=== PATIENT | female | born 1980 | race Caucasian/White ===

== ENCOUNTER 2020-11-14 23:43 | Emergency (ER) | payer OTHER | END 2020-11-15 03:05 | disposition home or self-care (01) | LOC: ER1 23:43 | DX: S30.0XXA Contusion of lower back and pelvis, initial encounter (principal); S10.93XA Contusion of unspecified part of neck, initial encounter; M06.9 Rheumatoid arthritis, unspecified; M19.90 Unspecified osteoarthritis, unspecified site; F17.200 Nicotine dependence, unspecified, uncomplicated; Z88.0 Allergy status to penicillin; Z90.710 Acquired absence of both cervix and uterus; Z88.5 Allergy status to narcotic agent; Y08.89XA Assault by other specified means, initial encounter | CPT/HCPCS: 70360; 71101; 72100; 99283 ==

== ENCOUNTER 2021-01-29 21:09 | Emergency (ER) | payer OTHER ==
[~2021-01-29 21:09] MED LIST: CYCLOBENZAPRINE10 MG PO; IBUPROFEN600 MG PO; LIDOCAINE1 EAC1 TP
== END 2021-01-30 00:30 | disposition home or self-care (01) ==
LOC: ER1 21:09
DX: S30.0XXA Contusion of lower back and pelvis, initial encounter (principal); F17.210 Nicotine dependence, cigarettes, uncomplicated; Z88.0 Allergy status to penicillin; W01.0XXA Fall on same level from slipping, tripping and stumbling without subsequent striking against object, initial encounter
CPT/HCPCS: 72131; 81001; 84703; 96372; 96374; 96375; 99284; J1885; J2270; J2360

== ENCOUNTER 2021-10-27 22:22 | Emergency (ER) | payer OTHER ==
[2021-10-27 23:18] LABS: HEMOGLOBIN 13.9 gm/dl (12.3-15.3); RED BLOOD COUNT 4.7 M/UL (4.00-5.10); WHITE BLOOD COUNT 4.1 K/UL (4.5-11.0)
[2021-10-27 23:43] LABS: BUN/CREATININE RATIO 21 (0-10)
== END 2021-10-28 02:00 | disposition home or self-care (01) ==
LOC: ER1 22:22
PROVIDERS: Student in an Organized Health Care Education/Training Program
DX: S09.90XA Unspecified injury of head, initial encounter (principal); M54.50 Low back pain, unspecified; E87.6 Hypokalemia; F17.210 Nicotine dependence, cigarettes, uncomplicated; Z88.0 Allergy status to penicillin; Z88.5 Allergy status to narcotic agent; W01.0XXA Fall on same level from slipping, tripping and stumbling without subsequent striking against object, initial encounter; Y92.828 Other wilderness area as the place of occurrence of the external cause
CPT/HCPCS: 70450; 71045; 72131; 80053; 82550; 82553; 84484; 85025; 99284